=== PATIENT | female | born 1945 | race African-American/Black ===

== ENCOUNTER 2017-07-17 23:00 | Inpatient (IN) | payer MEDICARE, MEDICAID ==
[~2017-07-17] VITALS: Ht 167.6 cm; Wt 81.4 kg
[~2017-07-17 23:00] MED LIST: ACET-3161 PO; AMLO10TA80 PO; ARAV20 PO; CARV12.545 PO; FOLI-43 PO; HYDR-2510 PO; HYDR-4005 PO; LETROZOLE; LOSA100T14 PO; MELO-106 PO; METH2.5T PO; MOTRIN PO; OCD PO; OMEP40CA34 PO; POTA10CA42 PO; PRED5TAB48 PO
[2017-07-18] VITALS: BP 111/73
[2017-07-18 00:49] VITALS: BP 111/73
[2017-07-18] MEDS ORDERED: HYDROCODONE/ACETAMINOPHEN 10/325MG TABLET PO PRN (02:45)
[2017-07-18] MEDS ORDERED: ZOLPIDEM TARTRATE 5MG TABLET PO PRN (02:45)
[2017-07-18] MEDS ORDERED: ONDANSETRON HCL 4MG/2ML VIAL IV PRN ×2 (02:45)
[2017-07-18] MEDS ORDERED: DIPHENHYDRAMINE 50MG/ML VIAL IV PRN (02:45)
[2017-07-18] MEDS ORDERED: ACETAMINOPHEN 325MG TABLET PO PRN (02:45)
[2017-07-18] MEDS ORDERED: DEXT 5%/0.45% NACL 1000ML 1,000 ML IV SCH (02:45)
[2017-07-18] MEDS ORDERED: MAGNESIUM HYDROXIDE 400MG/5ML 30ML UDC PO PRN (02:45)
[2017-07-18] MEDS ORDERED: NALOXONE HCL 0.4 MG/ML 1ML VIAL IV PRN (02:45)
[2017-07-18] MEDS: METOCLOPRAMIDE HCL 10MG TABLET PO SCH ×3 (06:40→22:34)
[2017-07-18] MEDS: HYDROCODONE/ACETAMINOPHEN 10/325MG TABLET PO PRN ×2 (06:47→16:12)
[2017-07-18 07:09] LABS: HEMATOCRIT 26.3 % (36.0-48.0); HEMOGLOBIN 8.6 g/dL (12.0-16.0); MEAN CORPUSCULAR HEMOGLOBIN 31.1 pg (28.0-32.0); MEAN CORPUSCULAR VOLUME 94.5 fL (81.0-99.0); PLATELET 245 x1000/uL (130-400); RED BLOOD CELL COUNT 2.78 mill/uL (4.2-5.4); RED CELL DISTRIBUTION WIDTH 14.7 % (11.6-14.6)
[2017-07-18 07:52] LABS: CARBON DIOXIDE 20 mEq/L (21-32); CHLORIDE 110 mEq/L (98-107); PREALBUMIN 8.9 mg/dL (20.0-40.0)
[2017-07-18 08:00] VITALS: BP 114/68
[2017-07-18] MEDS ORDERED: PANTOPRAZOLE SODIUM 40 MG/VIAL IV SCH (09:00)
[2017-07-18] MEDS: FERROUS SULFATE 325MG TABLET PO SCH ×2 (10:03→16:09)
[2017-07-18] MEDS: DOCUSATE SODIUM 100MG CAPSULE PO SCH ×2 (10:03→16:09)
[2017-07-18] MEDS: RIVAROXABAN 10 MG TABLET PO SCH (16:09)
[2017-07-18 20:00] VITALS: BP 106/61
[2017-07-18] MEDS: PANTOPRAZOLE 40MG DR TABLET PO SCH (22:34)
[2017-07-19] MEDS: HYDROCODONE/ACETAMINOPHEN 10/325MG TABLET PO PRN ×4 (01:42→21:53)
[2017-07-19] MEDS: METOCLOPRAMIDE HCL 10MG TABLET PO SCH ×3 (06:15→21:33)
[2017-07-19 08:06] VITALS: BP 150/82
[2017-07-19] MEDS: FERROUS SULFATE 325MG TABLET PO SCH ×4 (09:20→17:58)
[2017-07-19] MEDS: DOCUSATE SODIUM 100MG CAPSULE PO SCH ×2 (09:20→17:58)
[2017-07-19] MEDS: PANTOPRAZOLE 40MG DR TABLET PO SCH ×2 (09:20→21:33)
[2017-07-19 14:45] VITALS: BP 154/85
[2017-07-19] MEDS: RIVAROXABAN 10 MG TABLET PO SCH (17:58)
[2017-07-19 20:00] VITALS: BP 140/85
[2017-07-19] MEDS ORDERED: ALBUTEROL (0.083%) 2.5MG/3ML NEB HHN PRN (21:30)
[2017-07-19] MEDS: IPRATROPIUM/ALBUTEROL 0.5-3(2.5)MG/3ML NEB HHN SCH (21:30)
[2017-07-20] MEDS: HYDROCODONE/ACETAMINOPHEN 10/325MG TABLET PO PRN (04:04)
[2017-07-20 04:35] LABS: CLARITY URINE CLEAR (CLEAR); COLOR URINE YELLOW (YELLOW); GLUCOSE URINE NEGATIVE (NEGATIVE); KETONES URINE 2+ (NEGATIVE); LEUKOCYTE ESTERASE URINE TRACE (NEGATIVE); NITRITE URINE NEGATIVE (NEGATIVE); OCCULT BLOOD URINE 3+ (NEGATIVE); PH URINE 5.5 (4.5-8.0); PROTEIN URINE 1+ (NEGATIVE); SPECIFIC GRAVITY URINE 1.016 (1.005-1.030); UROBILINOGEN URINE 0.2 E.U./dL (0.2-1.0)
[2017-07-20] MEDS: METOCLOPRAMIDE HCL 10MG TABLET PO SCH ×3 (05:24→21:23)
[2017-07-20 06:52] LABS: BASOPHILS % 0.6 % (0.0-2.0); EOSINOPHILS % 3.4 % (0.0-5.0); HEMATOCRIT. 25.1 % (36.0-48.0); HEMOGLOBIN. 8.4 g/dL (12.0-16.0); LYMPHOCYTES % 14.7 % (20.0-50.0); MEAN CORPUSCULAR HEMOGLOBIN 31.3 pg (28.0-32.0); MEAN CORPUSCULAR VOLUME 93.2 fL (81.0-99.0); MEAN PLATELET VOLUME 7.2 fl (7.4-10.4); MONOCYTES % 12.3 % (2.0-8.0); PLATELET 265 x1000/uL (130-400); RED BLOOD CELL COUNT 2.69 mill/uL (4.2-5.4); RED CELL DISTRIBUTION WIDTH 14.5 % (11.6-14.6)
[2017-07-20 07:04] LABS: FERRITIN 269 ng/mL (10-291)
[2017-07-20] MEDS: IPRATROPIUM/ALBUTEROL 0.5-3(2.5)MG/3ML NEB HHN SCH ×4 (07:28→21:46)
[2017-07-20 07:34] LABS: CHLORIDE 103 mEq/L (98-107)
[2017-07-20 07:48] LABS: CARBON DIOXIDE 21 mEq/L (21-32); HDL CHOLESTEROL 42 mg/dL (40-59); LDL CHOLESTEROL 75 mg/dL (5-100); PHOSPHORUS 2.7 mg/dL (2.5-4.9); PREALBUMIN 8.3 mg/dL (20.0-40.0); TOTAL IRON BINDING CAPACITY 168 ug/dL (250-450)
[2017-07-20 08:00] VITALS: BP 157/85
[2017-07-20 08:02] LABS: VITAMIN B12 SERUM 373 pg/mL (211-911)
[2017-07-20 08:16] LABS: FOLIC ACID (FOLATE) SERUM > 20.00 ng/mL (>5.38)
[2017-07-20] MEDS ORDERED: POTASSIUM CHLORIDE 20MEQ TABLET SR PO SCH (08:45)
[2017-07-20] MEDS ORDERED: MAGNESIUM OXIDE 400MG TABLET PO SCH (09:00)
[2017-07-20] MEDS: PANTOPRAZOLE 40MG DR TABLET PO SCH ×2 (09:40→21:23)
[2017-07-20] MEDS: DOCUSATE SODIUM 100MG CAPSULE PO SCH ×2 (09:40→18:19)
[2017-07-20] MEDS: FERROUS SULFATE 325MG TABLET PO SCH ×2 (09:40→14:12)
[2017-07-20] MEDS: OXYCODONE HCL 5MG TABLET PO PRN ×2 (09:45→23:06)
[2017-07-20] MEDS ORDERED: MAGNESIUM 2 G PREMIX 50 ML IV SCH (17:00)
[2017-07-20] MEDS: RIVAROXABAN 10 MG TABLET PO SCH (18:19)
[2017-07-20] MEDS ORDERED: ACETAMINOPHEN 500MG TABLET PO NR (19:00)
[2017-07-20 20:00] VITALS: BP 147/78
[2017-07-20 21:05] LABS: BASOPHILS % 0.8 % (0.0-2.0); EOSINOPHILS % 1.9 % (0.0-5.0); HEMATOCRIT. 26.3 % (36.0-48.0); HEMOGLOBIN. 8.7 g/dL (12.0-16.0); LYMPHOCYTES % 14.4 % (20.0-50.0); MEAN CORPUSCULAR HEMOGLOBIN 30.8 pg (28.0-32.0); MONOCYTES % 10.5 % (2.0-8.0); NEUTROPHILS % 72.4 % (40.0-76.0); PLATELET 293 x1000/uL (130-400); RED BLOOD CELL COUNT 2.82 mill/uL (4.2-5.4); RED CELL DISTRIBUTION WIDTH 14.5 % (11.6-14.6)
[2017-07-20] MEDS: IRON SUCROSE COMPLEX 100 MG in SODIUM CHLORIDE 0.9% 100 ML IV SCH (21:23)
[2017-07-20 21:48] LABS: CLARITY URINE CLEAR (CLEAR); COLOR URINE YELLOW (YELLOW); GLUCOSE URINE NEGATIVE (NEGATIVE); KETONES URINE 3+ (NEGATIVE); LEUKOCYTE ESTERASE URINE NEGATIVE (NEGATIVE); NITRITE URINE NEGATIVE (NEGATIVE); OCCULT BLOOD URINE 3+ (NEGATIVE); PH URINE 5.5 (4.5-8.0); PROTEIN URINE 1+ (NEGATIVE); SPECIFIC GRAVITY URINE 1.015 (1.005-1.030); UROBILINOGEN URINE 0.2 E.U./dL (0.2-1.0)
[2017-07-20] MEDS: METHYLPREDNISOLONE SOD SUCC 40 MG/ML VIAL IV SCH (23:53)
[2017-07-21] MEDS: METOCLOPRAMIDE HCL 10MG TABLET PO SCH ×3 (05:25→22:22)
[2017-07-21] MEDS: METHYLPREDNISOLONE SOD SUCC 40 MG/ML VIAL IV SCH ×2 (05:25→13:37)
[2017-07-21] MEDS: OXYCODONE HCL 5MG TABLET PO PRN ×6 (05:25→22:22)
[2017-07-21 05:52] LABS: BASOPHILS % 0.7 % (0.0-2.0); EOSINOPHILS % 2.5 % (0.0-5.0); HEMATOCRIT. 24.3 % (36.0-48.0); LYMPHOCYTES % 12.3 % (20.0-50.0); MEAN CORPUSCULAR HEMOGLOBIN 30.8 pg (28.0-32.0); MEAN CORPUSCULAR VOLUME 93.6 fL (81.0-99.0); MONOCYTES % 11.1 % (2.0-8.0); NEUTROPHILS % 73.4 % (40.0-76.0); PLATELET 293 x1000/uL (130-400); RED CELL DISTRIBUTION WIDTH 14.2 % (11.6-14.6)
[2017-07-21 06:09] LABS: CARBON DIOXIDE 21 mEq/L (21-32); CHLORIDE 104 mEq/L (98-107)
[2017-07-21] MEDS: IPRATROPIUM/ALBUTEROL 0.5-3(2.5)MG/3ML NEB HHN SCH ×4 (07:28→20:58)
[2017-07-21] MEDS ORDERED: ACETAMINOPHEN 325MG TABLET PO PRN (07:30)
[2017-07-21 08:00] VITALS: BP 155/87
[2017-07-21] MEDS: CYANOCOBALAMIN 1000MCG/ML VIAL IM SCH (09:41)
[2017-07-21] MEDS: PANTOPRAZOLE 40MG DR TABLET PO SCH ×2 (09:41→21:30)
[2017-07-21] MEDS: DOCUSATE SODIUM 100MG CAPSULE PO SCH ×2 (09:41→17:31)
[2017-07-21] MEDS ORDERED: CEFEPIME 1,000 MG in DEXTROSE 5% WATER 50 ML IV SCH (17:30)
[2017-07-21] MEDS: RIVAROXABAN 10 MG TABLET PO SCH (17:31)
[2017-07-21] MEDS ORDERED: VANCOMYCIN 1500MG in DEXTROSE 5% WATER 250ML IV SCH (18:00)
[2017-07-21 20:00] VITALS: BP 139/90
[2017-07-21] MEDS: IRON SUCROSE COMPLEX 100 MG in SODIUM CHLORIDE 0.9% 100 ML IV SCH (21:29)
[2017-07-21] MEDS: LEVOFLOXACIN 500MG TABLET PO SCH (21:30)
[2017-07-21] MEDS: CEPHALEXIN 500MG CAPSULE PO SCH (22:21)
[2017-07-22] MEDS: METHYLPREDNISOLONE SOD SUCC 40 MG/ML VIAL IV SCH ×3 (00:07→11:59)
[2017-07-22] MEDS: OXYCODONE HCL 5MG TABLET PO PRN ×3 (03:29→13:55)
[2017-07-22] MEDS: CEPHALEXIN 500MG CAPSULE PO SCH ×2 (05:32→13:48)
[2017-07-22] MEDS: METOCLOPRAMIDE HCL 10MG TABLET PO SCH ×2 (05:33→13:48)
[2017-07-22 07:06] LABS: HEMATOCRIT. 25.5 % (36.0-48.0); HEMOGLOBIN. 8.6 g/dL (12.0-16.0); MEAN CORPUSCULAR VOLUME 92.2 fL (81.0-99.0); MEAN PLATELET VOLUME 7.1 fl (7.4-10.4); PLATELET 350 x1000/uL (130-400); RED BLOOD CELL COUNT 2.77 mill/uL (4.2-5.4); RED CELL DISTRIBUTION WIDTH 14.1 % (11.6-14.6)
[2017-07-22 07:26] LABS: CHLORIDE 103 mEq/L (98-107)
[2017-07-22] MEDS: IPRATROPIUM/ALBUTEROL 0.5-3(2.5)MG/3ML NEB HHN SCH ×2 (07:30→11:15)
[2017-07-22 07:37] LABS: CARBON DIOXIDE 23 mEq/L (21-32)
[2017-07-22 08:00] VITALS: BP 151/88
[2017-07-22] MEDS ORDERED: VANCOMYCIN 500 MG PREMIX 100 ML IV SCH (08:00)
[2017-07-22] MEDS: PANTOPRAZOLE 40MG DR TABLET PO SCH (08:53)
[2017-07-22] MEDS: CYANOCOBALAMIN 1000MCG/ML VIAL IM SCH (08:53)
[2017-07-22] MEDS: DOCUSATE SODIUM 100MG CAPSULE PO SCH (08:53)
[2017-07-22] MEDS: LEVOFLOXACIN 500MG TABLET PO SCH (11:59)
[2017-07-22 12:53] LABS: RHEUMATOID FACTOR SCREEN POSITIVE (NEGATIVE)
[2017-07-22 14:41] VITALS: BP 145/94
[2017-07-22 17:12] LABS: ANTI-NUCLEAR ANTIBODIES DIRECT Positive (Negative)
[2017-07-23 15:03] LABS: PLATELET ESTIMATE NORMAL
[2017-07-23 19:06] LABS: 25-HYDROXY VITAMIN D3 3.7 ng/mL (.)
[2017-07-25 17:12] LABS: ACTIN (SMOOTH MUSCLE) ANTIBODY 46 Units (0-19)
[2017-07-26 13:12] LABS: COMPLEMENT C3 162 mg/dL (82-167)
[2017-08-03] MEDS ORDERED: CYANOCOBALAMIN 1000MCG/ML VIAL IM SCH (09:00)
== END 2017-07-22 15:20 | disposition home or self-care (01) | DRG 546 ==
PROVIDERS: ADMIT Physical Medicine & Rehabilitation Spinal Cord Injury Medicine; ATTEND Internal Medicine Rheumatology
DX: M06.862 Other specified rheumatoid arthritis, left knee (principal); E46 Unspecified protein-calorie malnutrition; I11.9 Hypertensive heart disease without heart failure; G72.9 Myopathy, unspecified; E66.01 Morbid (severe) obesity due to excess calories; J98.4 Other disorders of lung; D63.8 Anemia in other chronic diseases classified elsewhere; I77.6 Arteritis, unspecified; I73.9 Peripheral vascular disease, unspecified; K21.9 Gastro-esophageal reflux disease without esophagitis; Z96.652 Presence of left artificial knee joint; D50.9 Iron deficiency anemia, unspecified; E53.8 Deficiency of other specified B group vitamins; E78.5 Hyperlipidemia, unspecified; E87.6 Hypokalemia; R50.82 Postprocedural fever; M05.10 Rheumatoid lung disease with rheumatoid arthritis of unspecified site; J44.9 Chronic obstructive pulmonary disease, unspecified; G89.29 Other chronic pain; M54.5 Low back pain; M51.36 Other intervertebral disc degeneration, lumbar region; Z80.0 Family history of malignant neoplasm of digestive organs; Z82.49 Family history of ischemic heart disease and other diseases of the circulatory system; Z85.3 Personal history of malignant neoplasm of breast; Z90.10 Acquired absence of unspecified breast and nipple; Z79.899 Other long term (current) drug therapy; Z87.01 Personal history of pneumonia (recurrent); Z92.3 Personal history of irradiation; Z87.891 Personal history of nicotine dependence; Z68.37 Body mass index [BMI] 37.0-37.9, adult; Z83.3 Family history of diabetes mellitus
CPT/HCPCS: 36415; 71010; 80048; 80053; 80061; 81001; 82270; 82306; 82607; 82728; 82746; 83036; 83540; 83550; 83735; 84100; 84134; 84443; 84550; 84630; 85025; 85027; 85044; 85379; 85651; 86038; 86160; 86162; 86430; 86880; 87040; 87086; 93970; 94640; 94664; 97110; 97116; 97163; 97166; 97530; 97535; C1893; J0692; J2920; J3370; J3420; J3475; J3490; J7040; J7050; J7060; J7620; J8597

== ENCOUNTER 2017-07-24 20:18 | Emergency (ER) | payer MEDICARE, MEDICAID ==
[~2017-07-24] VITALS: Ht 157.5 cm; Wt 100.0 kg
[2017-07-24 23:15] VITALS: BP 133/74
== END 2017-07-24 23:50 | disposition home or self-care (01) ==
LOC: ER 21:46
DX: Z48.00 Encounter for change or removal of nonsurgical wound dressing (principal); E78.00 Pure hypercholesterolemia, unspecified; I10 Essential (primary) hypertension; Z85.9 Personal history of malignant neoplasm, unspecified; Z96.651 Presence of right artificial knee joint
CPT/HCPCS: 99283; L1830

== ENCOUNTER 2017-08-05 16:03 | Emergency (ER) | payer MEDICARE, MEDICAID ==
[~2017-08-05] VITALS: Ht 165.1 cm; Wt 100.0 kg
[2017-08-05] MEDS ORDERED: CEFTRIAXONE 1 G PREMIX 50 ML IV ONE (17:15)
[2017-08-05] MEDS ORDERED: VANCOMYCIN 500 MG PREMIX 100 ML IV SCH (17:15)
[2017-08-05 17:26] LABS: BASOPHILS % 0.7 % (0.0-2.0); EOSINOPHILS % 1.7 % (0.0-5.0); HEMATOCRIT. 29.9 % (36.0-48.0); HEMOGLOBIN. 9.8 g/dL (12.0-16.0); LYMPHOCYTES % 51.4 % (20.0-50.0); MEAN CORPUSCULAR VOLUME 91.6 fL (81.0-99.0); MEAN PLATELET VOLUME 7.5 fl (7.4-10.4); MONOCYTES % 9.6 % (2.0-8.0); NEUTROPHILS % 36.6 % (40.0-76.0); PLATELET 238 x1000/uL (130-400); RED BLOOD CELL COUNT 3.26 mill/uL (4.2-5.4); RED CELL DISTRIBUTION WIDTH 15.1 % (11.6-14.6)
[2017-08-05 17:32] LABS: INR 1.2; PROTHROMBIN TIME 12.4 sec (9.4-11.6)
[2017-08-05 17:45] LABS: CARBON DIOXIDE 20 mEq/L (21-32); CHLORIDE 105 mEq/L (98-107)
[2017-08-05] MEDS ORDERED: HYDROCODONE/ACETAMINOPHEN 5/325MG TABLET PO ONE (21:45)
[2017-08-06 00:10] VITALS: BP 131/86
== END 2017-08-06 00:09 | disposition home or self-care (01) ==
LOC: ER 16:03 → CMPBEDREQ 21:14 → ER 08-06 00:09
DX: M25.562 Pain in left knee (principal); M06.9 Rheumatoid arthritis, unspecified; I10 Essential (primary) hypertension; E78.00 Pure hypercholesterolemia, unspecified; Z96.652 Presence of left artificial knee joint
CPT/HCPCS: 36415; 71010; 80053; 83605; 85025; 85610; 85651; 86140; 87040; 93005; 96365; 96367; 99285; J0696; J3370

== ENCOUNTER 2017-08-07 12:28 | Inpatient (IN) | payer MEDICARE, MEDICAID ==
[~2017-08-07] VITALS: Ht 167.6 cm; Wt 89.8 kg
[2017-08-07] MEDS ORDERED: SODIUM CHLORIDE 0.9% 1,000 ML IV ONE (14:15)
[2017-08-07 14:46] LABS: BASOPHILS % 0.8 % (0.0-2.0); EOSINOPHILS % 2.5 % (0.0-5.0); HEMATOCRIT. 29.7 % (36.0-48.0); HEMOGLOBIN. 9.8 g/dL (12.0-16.0); LYMPHOCYTES % 49.2 % (20.0-50.0); MEAN CORPUSCULAR HEMOGLOBIN 29.7 pg (28.0-32.0); MEAN CORPUSCULAR VOLUME 89.8 fL (81.0-99.0); MEAN PLATELET VOLUME 7.6 fl (7.4-10.4); MONOCYTES % 11.3 % (2.0-8.0); NEUTROPHILS % 36.2 % (40.0-76.0); PLATELET 200 x1000/uL (130-400)
[2017-08-07 14:55] LABS: CHLORIDE 106 mEq/L (98-107); INR 1.2; PROTHROMBIN TIME 12.9 sec (9.4-11.6)
[2017-08-07 15:00] LABS: CARBON DIOXIDE 21 mEq/L (21-32)
[2017-08-07] MEDS ORDERED: KCL 10MEQ/50ML PREMIX 100 ML IV SCH (15:45)
[2017-08-07] MEDS ORDERED: POTASSIUM CHLORIDE 20MEQ TABLET SR PO ONE (15:45)
[2017-08-07] MEDS ORDERED: SODIUM CHLORIDE 0.9% 1,000 ML IV SCH (15:53)
[2017-08-07] MEDS ORDERED: BACITRACIN 50,000 UNITS/VIAL ONE (21:34)
[2017-08-07] MEDS ORDERED: NORMAL SALINE 0.9% 10 ML SYR ONE (21:34)
[2017-08-07] MEDS ORDERED: BUPIVACAINE/EPINEPHRINE/PF 0.25%/0.0005 30ML ONE (21:37)
[2017-08-07] MEDS ORDERED: MORPHINE SULFATE/PF 1MG/ML 10ML AMP ONE (21:37)
[2017-08-07] MEDS ORDERED: TRANEXAMIC ACID 1,000 MG in SODIUM CHLORIDE 0.9% 100 ML IV NR (23:00)
[2017-08-07] MEDS ORDERED: VANCOMYCIN HCL 500 MG/VIAL ONE (23:02)
[2017-08-07] MEDS ORDERED: LEVOFLOXACIN 500MG PREMIX 100 ML IV ONE (23:02)
[2017-08-07] MEDS ORDERED: HYDROCODONE/ACETAMINOPHEN 5/325MG TABLET PO PRN (23:15)
[2017-08-07] MEDS ORDERED: FENTANYL CITRATE/PF 50MCG/ML 2ML VIAL ONE (23:40)
[2017-08-07] MEDS ORDERED: MIDAZOLAM HCL 2 MG/2 ML VIAL ONE (23:40)
[2017-08-08] MEDS ORDERED: BACITRACIN 50,000 UNITS/VIAL ONE ×2 (00:13→00:51)
[2017-08-08] MEDS ORDERED: GENTAMICIN SULF 40MG/ML 2ML VIAL ONE ×2 (00:13→00:50)
[2017-08-08] MEDS ORDERED: NORMAL SALINE 0.9% 10 ML SYR ONE ×2 (00:13→00:51)
[2017-08-08] MEDS ORDERED: LIDOCAINE HCL 1% 20ML VIAL (Pyxis) INJ ONE (00:30)
[2017-08-08] MEDS ORDERED: PROPOFOL 200MG/20ML VIAL IV ONE (00:30)
[2017-08-08] MEDS ORDERED: GLYCOPYRROLATE 0.2 MG/ML 2ML VIAL ONE (00:31)
[2017-08-08] MEDS ORDERED: ONDANSETRON HCL 4MG/2ML VIAL ONE (00:31)
[2017-08-08] MEDS ORDERED: ROCURONIUM BROMIDE 10MG/ML VIAL 5ML IV ONE (00:31)
[2017-08-08] MEDS ORDERED: NEOSTIGMINE METHYLSULFATE 1MG/ML 10 ML VIAL ONE (00:31)
[2017-08-08] MEDS ORDERED: DEXAMETHASONE 4MG/ML 1ML VIAL ONE (00:31)
[2017-08-08] MEDS ORDERED: SUCCINYLCHOLINE CHLORIDE 200MG/10ML VIAL IV ONE (00:31)
[2017-08-08] MEDS ORDERED: PHENYLEPHRINE HCL 10 MG/ML 1ML (IV VIAL) IV ONE (00:31)
[2017-08-08] MEDS ORDERED: HYDROMORPHONE HCL/PF 2MG/ML (OR) ONE (00:44)
[2017-08-08] MEDS ORDERED: SODIUM CHLORIDE 0.9% 10ML VIAL ONE (00:48)
[2017-08-08] MEDS ORDERED: BACITRACIN ZINC 15GM TUBE TOP ONE (01:51)
[2017-08-08] MEDS ORDERED: LABETALOL HCL 5MG/ML VIAL 20ML IV ONE (02:19)
[2017-08-08] MEDS ORDERED: HYDROMORPHONE HCL/PF 2MG/ML CPJ IV PRN (03:00)
[2017-08-08] MEDS ORDERED: METOCLOPRAMIDE HCL 10MG/2ML VIAL IV PRN (03:00)
[2017-08-08 04:00] VITALS: BP 101/68
[2017-08-08 04:10] LABS: BASOPHILS % 0.5 % (0.0-2.0); EOSINOPHILS % 0.4 % (0.0-5.0); HEMATOCRIT. 29.2 % (36.0-48.0); HEMOGLOBIN. 9.5 g/dL (12.0-16.0); LYMPHOCYTES % 22.6 % (20.0-50.0); MEAN CORPUSCULAR HEMOGLOBIN 29.8 pg (28.0-32.0); MEAN PLATELET VOLUME 7.7 fl (7.4-10.4); MONOCYTES % 2.3 % (2.0-8.0); NEUTROPHILS % 74.2 % (40.0-76.0); PLATELET 190 x1000/uL (130-400); RED BLOOD CELL COUNT 3.18 mill/uL (4.2-5.4); RED CELL DISTRIBUTION WIDTH 15.3 % (11.6-14.6)
[2017-08-08] MEDS ORDERED: DIPHENHYDRAMINE 50MG/ML VIAL IV PRN (04:15)
[2017-08-08] MEDS ORDERED: NALOXONE HCL 0.4 MG/ML 1ML VIAL IV PRN (04:15)
[2017-08-08] MEDS ORDERED: ONDANSETRON HCL 4MG/2ML VIAL IV PRN (04:15)
[2017-08-08] MEDS ORDERED: HYDROMORPHONE PCA 50 ML IV PRN (04:15)
[2017-08-08 04:47] LABS: CARBON DIOXIDE 18 mEq/L (21-32); CHLORIDE 112 mEq/L (98-107)
[2017-08-08 05:00] VITALS: BP 101/68
[2017-08-08] MEDS ORDERED: HYDROCODONE/ACETAMINOPHEN 5/325MG TABLET PO PRN ×2 (05:25→05:26)
[2017-08-08] MEDS ORDERED: HYDROCODONE/ACETAMINOPHEN 5/325MG TABLET PO SCH (05:25)
[2017-08-08] MEDS ORDERED: MAGNESIUM HYDROXIDE 400MG/5ML 30ML UDC PO PRN (05:25)
[2017-08-08] MEDS ORDERED: DEXT 5% WATER + KCL 20MEQ/L 1,000 ML IV SCH (07:00)
[2017-08-08] MEDS ORDERED: LEVOFLOXACIN 500MG PREMIX 100 ML IV SCH (07:00)
[2017-08-08] MEDS: VANCOMYCIN 1500MG in DEXTROSE 5% WATER 250ML IV SCH (07:03)
[2017-08-08 07:23] LABS: HEMOGLOBIN 10.1 g/dL (12.0-16.0); MEAN CORPUSCULAR HEMOGLOBIN 29.4 pg (28.0-32.0); MEAN CORPUSCULAR VOLUME 93.4 fL (81.0-99.0); PLATELET 186 x1000/uL (130-400); RED BLOOD CELL COUNT 3.43 mill/uL (4.2-5.4); RED CELL DISTRIBUTION WIDTH 15.5 % (11.6-14.6)
[2017-08-08 08:00] VITALS: BP 133/96
[2017-08-08] MEDS ORDERED: CALCIUM CARBONATE 1250MG TABLET (500MG ELEMENTAL CALCIUM) PO SCH (09:00)
[2017-08-08 09:52] LABS: PREALBUMIN 4.8 mg/dL (20.0-40.0); T4 FREE 1.17 ng/dL (0.76-1.46)
[2017-08-08] MEDS: CHOLECALCIFEROL (D3) 1000 UNIT TABLET PO SCH (09:52)
[2017-08-08] MEDS: POTASSIUM CHLORIDE 20MEQ TABLET SR PO SCH (09:52)
[2017-08-08] MEDS: CALCIUM CARBONATE 500MG TABLET CHEW PO SCH ×3 (09:52→18:05)
[2017-08-08] MEDS: PREDNISONE 5MG TABLET PO SCH (09:52)
[2017-08-08] MEDS: DOCUSATE SODIUM 100MG CAPSULE PO SCH ×2 (09:52→17:51)
[2017-08-08] MEDS: PANTOPRAZOLE 40MG DR TABLET PO SCH ×2 (09:53→17:51)
[2017-08-08] MEDS: AMLODIPINE 10MG TABLET PO SCH (09:53)
[2017-08-08] MEDS: FOLIC ACID 1MG TABLET PO SCH (09:53)
[2017-08-08] MEDS: CARVEDILOL 12.5MG TABLET PO SCH ×2 (09:53→21:00)
[2017-08-08] MEDS: FERROUS SULFATE 325MG TABLET PO SCH ×3 (09:54→18:05)
[2017-08-08] MEDS: HYDROCHLOROTHIAZIDE 25MG TABLET PO SCH (09:55)
[2017-08-08] MEDS: PAROXETINE HCL 20MG TABLET PO SCH (09:55)
[2017-08-08] MEDS: MELOXICAM 7.5MG TABLET PO SCH (09:55)
[2017-08-08] MEDS ORDERED: IPRATROPIUM/ALBUTEROL 0.5-3(2.5)MG/3ML NEB HHN PRN (11:00)
[2017-08-08 12:00] VITALS: BP 107/74
[2017-08-08] MEDS: IPRATROPIUM/ALBUTEROL 0.5-3(2.5)MG/3ML NEB HHN SCH ×3 (13:16→20:00)
[2017-08-08 16:00] VITALS: BP 97/52
[2017-08-08] MEDS: CEFEPIME 1,000 MG in DEXTROSE 5% WATER 50 ML IV SCH (17:49)
[2017-08-08] MEDS: ACETAMINOPHEN 325MG TABLET PO PRN (17:50)
[2017-08-08 20:00] VITALS: BP 96/56
[2017-08-08] MEDS: DEXT 5% WATER + KCL 20MEQ/L 1,000 ML IV SCH (22:00)
[2017-08-08] MEDS: LOSARTAN POTASSIUM 100 MG TABLET PO SCH (22:12)
[2017-08-09] VITALS: BP 106/59
[2017-08-09 04:00] VITALS: BP 120/66
[2017-08-09] MEDS: CEFEPIME 1,000 MG in DEXTROSE 5% WATER 50 ML IV SCH ×2 (05:41→18:27)
[2017-08-09] MEDS: VANCOMYCIN 1500MG in DEXTROSE 5% WATER 250ML IV SCH (06:18)
[2017-08-09] MEDS: DEXT 5% WATER + KCL 20MEQ/L 1,000 ML IV SCH ×3 (06:18→16:50)
[2017-08-09] MEDS: PANTOPRAZOLE 40MG DR TABLET PO SCH ×2 (07:32→18:27)
[2017-08-09] MEDS: TRAMADOL 50MG TABLET PO PRN ×2 (07:32→18:28)
[2017-08-09 07:35] LABS: BASOPHILS % 0.2 % (0.0-2.0); HEMOGLOBIN. 8.1 g/dL (12.0-16.0); MEAN CORPUSCULAR HEMOGLOBIN 29.9 pg (28.0-32.0); MEAN CORPUSCULAR VOLUME 89.1 fL (81.0-99.0); MEAN PLATELET VOLUME 8.3 fl (7.4-10.4); MONOCYTES % 9.6 % (2.0-8.0); NEUTROPHILS % 63.2 % (40.0-76.0); PLATELET 194 x1000/uL (130-400); RED BLOOD CELL COUNT 2.69 mill/uL (4.2-5.4); RED CELL DISTRIBUTION WIDTH 15.4 % (11.6-14.6)
[2017-08-09 08:00] VITALS: BP 113/66
[2017-08-09 08:31] LABS: CARBON DIOXIDE 21 mEq/L (21-32); CHLORIDE 107 mEq/L (98-107)
[2017-08-09] MEDS: PAROXETINE HCL 20MG TABLET PO SCH (08:43)
[2017-08-09] MEDS: FOLIC ACID 1MG TABLET PO SCH (08:43)
[2017-08-09] MEDS: DOCUSATE SODIUM 100MG CAPSULE PO SCH ×2 (08:43→18:27)
[2017-08-09] MEDS: PREDNISONE 5MG TABLET PO SCH (08:43)
[2017-08-09] MEDS: POTASSIUM CHLORIDE 20MEQ TABLET SR PO SCH (08:43)
[2017-08-09] MEDS: MELOXICAM 7.5MG TABLET PO SCH (08:43)
[2017-08-09] MEDS: CALCIUM CARBONATE 500MG TABLET CHEW PO SCH ×3 (08:43→18:27)
[2017-08-09] MEDS: FERROUS SULFATE 325MG TABLET PO SCH ×3 (08:43→18:28)
[2017-08-09] MEDS: CARVEDILOL 12.5MG TABLET PO SCH ×2 (08:44→23:47)
[2017-08-09] MEDS: HYDROCHLOROTHIAZIDE 25MG TABLET PO SCH (08:44)
[2017-08-09] MEDS: CHOLECALCIFEROL (D3) 1000 UNIT TABLET PO SCH (08:44)
[2017-08-09] MEDS: AMLODIPINE 10MG TABLET PO SCH (08:44)
[2017-08-09] MEDS: IPRATROPIUM/ALBUTEROL 0.5-3(2.5)MG/3ML NEB HHN SCH ×4 (09:30→21:43)
[2017-08-09] MEDS: ONDANSETRON HCL 4MG/2ML VIAL IV PRN (11:16)
[2017-08-09 12:00] VITALS: BP 102/55
[2017-08-09 16:00] VITALS: BP 106/72
[2017-08-09] MEDS ORDERED: METHYLPREDNISOLONE SOD SUCC 125 MG/2 ML VIAL IV SCH (18:30)
[2017-08-09 20:35] VITALS: BP 122/87
[2017-08-09] MEDS: LOSARTAN POTASSIUM 100 MG TABLET PO SCH (23:46)
[2017-08-09] MEDS: METHYLPREDNISOLONE SOD SUCC 40 MG/ML VIAL IV SCH (23:47)
[2017-08-10] VITALS: BP 158/97
[2017-08-10] MEDS: ONDANSETRON HCL 4MG/2ML VIAL IV PRN
[2017-08-10] MEDS: DEXT 5% WATER + KCL 20MEQ/L 1,000 ML IV SCH ×2 (02:39→09:43)
[2017-08-10 04:00] VITALS: BP 159/96
[2017-08-10 06:32] LABS: BASOPHILS % 0.2 % (0.0-2.0); HEMATOCRIT. 29.9 % (36.0-48.0); HEMOGLOBIN. 9.9 g/dL (12.0-16.0); LYMPHOCYTES % 17.3 % (20.0-50.0); MEAN CORPUSCULAR HEMOGLOBIN 29.2 pg (28.0-32.0); MEAN CORPUSCULAR VOLUME 87.9 fL (81.0-99.0); MEAN PLATELET VOLUME 8.3 fl (7.4-10.4); MONOCYTES % 2.8 % (2.0-8.0); NEUTROPHILS % 79.7 % (40.0-76.0); PLATELET 212 x1000/uL (130-400); RED CELL DISTRIBUTION WIDTH 14.8 % (11.6-14.6)
[2017-08-10] MEDS: METHYLPREDNISOLONE SOD SUCC 40 MG/ML VIAL IV SCH ×2 (06:49→12:30)
[2017-08-10] MEDS: CEFEPIME 1,000 MG in DEXTROSE 5% WATER 50 ML IV SCH (06:49)
[2017-08-10 08:00] VITALS: BP 158/95
[2017-08-10] MEDS: CALCIUM CARBONATE 500MG TABLET CHEW PO SCH ×3 (09:04→18:22)
[2017-08-10] MEDS: CHOLECALCIFEROL (D3) 1000 UNIT TABLET PO SCH (09:04)
[2017-08-10] MEDS: HYDROCHLOROTHIAZIDE 25MG TABLET PO SCH (09:04)
[2017-08-10] MEDS: FOLIC ACID 1MG TABLET PO SCH (09:05)
[2017-08-10] MEDS: POTASSIUM CHLORIDE 20MEQ TABLET SR PO SCH (09:05)
[2017-08-10] MEDS: FERROUS SULFATE 325MG TABLET PO SCH ×3 (09:05→18:22)
[2017-08-10] MEDS: DOCUSATE SODIUM 100MG CAPSULE PO SCH ×2 (09:05→18:22)
[2017-08-10] MEDS: PANTOPRAZOLE 40MG DR TABLET PO SCH ×2 (09:05→18:22)
[2017-08-10] MEDS: PAROXETINE HCL 20MG TABLET PO SCH (09:05)
[2017-08-10] MEDS: MELOXICAM 7.5MG TABLET PO SCH (09:05)
[2017-08-10] MEDS: AMLODIPINE 10MG TABLET PO SCH (09:06)
[2017-08-10] MEDS: CARVEDILOL 12.5MG TABLET PO SCH ×2 (09:06→22:01)
[2017-08-10 12:00] VITALS: BP 156/99
[2017-08-10] MEDS ORDERED: HYDRALAZINE HCL 25MG TABLET PO SCH (13:00)
[2017-08-10] MEDS: SODIUM BICARBONATE 650 MG TABLET PO SCH ×2 (13:51→18:22)
[2017-08-10] MEDS ORDERED: CEFTRIAXONE IV SCH (15:00)
[2017-08-10] MEDS ORDERED: SODIUM CHLORIDE 0.9% IV SCH (15:00)
[2017-08-10 16:00] VITALS: BP 152/86
[2017-08-10] MEDS ORDERED: CEFTRIAXONE 2 G PREMIX 50 ML IV SCH (16:00)
[2017-08-10 20:00] VITALS: BP 145/97
[2017-08-10] MEDS: IPRATROPIUM/ALBUTEROL 0.5-3(2.5)MG/3ML NEB HHN SCH ×2 (20:46→21:25)
[2017-08-10] MEDS ORDERED: VANCOMYCIN 750 MG PREMIX 150 ML IV NR (21:00)
[2017-08-10] MEDS ORDERED: LEVOFLOXACIN 500MG TABLET PO NR (21:45)
[2017-08-10] MEDS: LOSARTAN POTASSIUM 100 MG TABLET PO SCH (22:00)
[2017-08-10] MEDS: HYDRALAZINE HCL 50MG TABLET PO SCH (22:00)
[2017-08-11] VITALS: BP 131/86
[2017-08-11] MEDS: METHYLPREDNISOLONE SOD SUCC 40 MG/ML VIAL IV SCH ×4 (00:30→18:06)
[2017-08-11 04:00] VITALS: BP 154/99
[2017-08-11 05:49] LABS: BASOPHILS % 0.2 % (0.0-2.0); HEMOGLOBIN. 10.6 g/dL (12.0-16.0); LYMPHOCYTES % 17.6 % (20.0-50.0); MEAN CORPUSCULAR HEMOGLOBIN 29.1 pg (28.0-32.0); MEAN CORPUSCULAR VOLUME 85.3 fL (81.0-99.0); MEAN PLATELET VOLUME 8.5 fl (7.4-10.4); MONOCYTES % 11.2 % (2.0-8.0); PLATELET 271 x1000/uL (130-400); RED BLOOD CELL COUNT 3.64 mill/uL (4.2-5.4); RED CELL DISTRIBUTION WIDTH 14.6 % (11.6-14.6)
[2017-08-11] MEDS: PANTOPRAZOLE 40MG DR TABLET PO SCH ×2 (06:06→17:18)
[2017-08-11 06:41] LABS: CHLORIDE 88 mEq/L (98-107)
[2017-08-11 06:47] LABS: CARBON DIOXIDE 22 mEq/L (21-32)
[2017-08-11 06:55] LABS: PREALBUMIN 17.1 mg/dL (20.0-40.0)
[2017-08-11] MEDS: IPRATROPIUM/ALBUTEROL 0.5-3(2.5)MG/3ML NEB HHN SCH ×5 (07:34→20:17)
[2017-08-11 08:00] VITALS: BP 141/100
[2017-08-11] MEDS ORDERED: METHOTREXATE SODIUM 2 . 5MG TABLET PO SCH ×3 (09:00→17:00)
[2017-08-11] MEDS: CALCIUM CARBONATE 500MG TABLET CHEW PO SCH ×3 (09:04→17:18)
[2017-08-11] MEDS: SODIUM BICARBONATE 650 MG TABLET PO SCH ×2 (09:04→17:19)
[2017-08-11] MEDS: POTASSIUM CHLORIDE 20MEQ TABLET SR PO SCH (09:04)
[2017-08-11] MEDS: FERROUS SULFATE 325MG TABLET PO SCH ×3 (09:04→17:18)
[2017-08-11] MEDS: FOLIC ACID 1MG TABLET PO SCH (09:04)
[2017-08-11] MEDS: CHOLECALCIFEROL (D3) 1000 UNIT TABLET PO SCH (09:04)
[2017-08-11] MEDS: HYDROCHLOROTHIAZIDE 25MG TABLET PO SCH (09:05)
[2017-08-11] MEDS: MELOXICAM 7.5MG TABLET PO SCH (09:05)
[2017-08-11] MEDS: CARVEDILOL 12.5MG TABLET PO SCH (09:05)
[2017-08-11] MEDS: DOCUSATE SODIUM 100MG CAPSULE PO SCH ×2 (09:05→17:19)
[2017-08-11] MEDS: HYDRALAZINE HCL 50MG TABLET PO SCH ×2 (09:05→21:30)
[2017-08-11] MEDS: AMLODIPINE 10MG TABLET PO SCH (09:06)
[2017-08-11] MEDS: DEXT 5%/0.45% NACL KCL 10MEQ/L 1,000 ML IV SCH ×3 (09:07→17:16)
[2017-08-11] MEDS ORDERED: POTASSIUM CHLORIDE 20MEQ TABLET SR PO NR (10:30)
[2017-08-11 12:00] VITALS: BP 136/91
[2017-08-11] MEDS ORDERED: SODIUM BICARBONATE 4% (2.4MEQ) 5ML VIAL IV ONE (14:26)
[2017-08-11] MEDS ORDERED: LIDOCAINE HCL 1% 20ML VIAL (Pyxis) INJ ONE (14:26)
[2017-08-11 16:00] VITALS: BP 136/91
[2017-08-11] MEDS: VANCOMYCIN 750 MG PREMIX 150 ML IV SCH (18:06)
[2017-08-11 20:00] VITALS: BP 136/94
[2017-08-11] MEDS ORDERED: SODIUM CHLORIDE 3% 500ML IV SOLN IV ONE (21:00)
[2017-08-11] MEDS: LOSARTAN POTASSIUM 100 MG TABLET PO SCH (21:29)
[2017-08-11] MEDS: CARVEDILOL 25MG TABLET PO SCH (21:30)
[2017-08-11] MEDS ORDERED: SODIUM CHLORIDE 3% 500 ML IV NR (22:00)
[2017-08-11] MEDS: ONDANSETRON HCL 4MG/2ML VIAL IV PRN (22:01)
[2017-08-12] VITALS: BP 128/80
[2017-08-12] MEDS: METHYLPREDNISOLONE SOD SUCC 40 MG/ML VIAL IV SCH ×4 (02:25→19:27)
[2017-08-12 04:00] VITALS: BP 146/99
[2017-08-12] MEDS: PANTOPRAZOLE 40MG DR TABLET PO SCH ×2 (06:49→18:03)
[2017-08-12 07:05] LABS: HEMATOCRIT. 37.8 % (36.0-48.0); HEMOGLOBIN. 12.8 g/dL (12.0-16.0); MEAN CORPUSCULAR HEMOGLOBIN 29.3 pg (28.0-32.0); MEAN CORPUSCULAR VOLUME 86.5 fL (81.0-99.0); MEAN PLATELET VOLUME 8.8 fl (7.4-10.4); PLATELET 300 x1000/uL (130-400); RED BLOOD CELL COUNT 4.37 mill/uL (4.2-5.4); RED CELL DISTRIBUTION WIDTH 14.6 % (11.6-14.6)
[2017-08-12] MEDS: IPRATROPIUM/ALBUTEROL 0.5-3(2.5)MG/3ML NEB HHN SCH ×4 (07:45→20:35)
[2017-08-12 08:00] VITALS: BP 133/93
[2017-08-12] MEDS ORDERED: MAGNESIUM 4 G PREMIX 100 ML IV SCH (09:00)
[2017-08-12] MEDS: VANCOMYCIN 750 MG PREMIX 150 ML IV SCH (09:19)
[2017-08-12] MEDS: FERROUS SULFATE 325MG TABLET PO SCH ×3 (09:24→18:03)
[2017-08-12] MEDS: HYDRALAZINE HCL 50MG TABLET PO SCH ×2 (09:25→21:27)
[2017-08-12] MEDS: CARVEDILOL 25MG TABLET PO SCH ×2 (09:25→21:27)
[2017-08-12] MEDS: DOCUSATE SODIUM 100MG CAPSULE PO SCH ×2 (09:25→18:03)
[2017-08-12] MEDS: HYDROCHLOROTHIAZIDE 25MG TABLET PO SCH (09:26)
[2017-08-12] MEDS: CALCIUM CARBONATE 500MG TABLET CHEW PO SCH ×3 (09:26→18:03)
[2017-08-12] MEDS: FOLIC ACID 1MG TABLET PO SCH (09:26)
[2017-08-12] MEDS: POTASSIUM CHLORIDE 20MEQ TABLET SR PO SCH ×2 (09:26→18:03)
[2017-08-12] MEDS: AMLODIPINE 10MG TABLET PO SCH (09:26)
[2017-08-12] MEDS: CHOLECALCIFEROL (D3) 1000 UNIT TABLET PO SCH (09:27)
[2017-08-12] MEDS: MELOXICAM 7.5MG TABLET PO SCH (09:31)
[2017-08-12] MEDS: SODIUM BICARBONATE 650 MG TABLET PO SCH ×2 (09:31→18:03)
[2017-08-12] MEDS: ONDANSETRON HCL 4MG/2ML VIAL IV PRN ×3 (09:48→21:26)
[2017-08-12 12:00] VITALS: BP 117/75
[2017-08-12 16:00] VITALS: BP 139/92
[2017-08-12] MEDS: POTASSIUM CHLORIDE INJ 10 MEQ in DEXT 5%/0.9% NACL 1,000 ML IV SCH (19:31)
[2017-08-12 20:00] VITALS: BP 125/76
[2017-08-12] MEDS ORDERED: MAGNESIUM 4 G PREMIX 100 ML IV NR (20:00)
[2017-08-12] MEDS ORDERED: SODIUM CHLORIDE 3% 500ML IV SOLN IV NR (21:00)
[2017-08-12] MEDS ORDERED: SODIUM CHLORIDE 3% 500 ML IV NR (21:00)
[2017-08-12] MEDS: LOSARTAN POTASSIUM 100 MG TABLET PO SCH (21:26)
[2017-08-12 22:17] LABS: PLATELET ESTIMATE NORMAL
[2017-08-13] VITALS: BP 104/68
[2017-08-13] MEDS: METHYLPREDNISOLONE SOD SUCC 40 MG/ML VIAL IV SCH ×4 (00:04→18:28)
[2017-08-13 04:00] VITALS: BP 129/79
[2017-08-13] MEDS: PANTOPRAZOLE 40MG DR TABLET PO SCH ×2 (06:48→18:28)
[2017-08-13] MEDS: POTASSIUM CHLORIDE INJ 10 MEQ in DEXT 5%/0.9% NACL 1,000 ML IV SCH ×2 (06:48→18:25)
[2017-08-13 07:43] LABS: LYMPHOCYTES % 12.4 % (20.0-50.0); MEAN PLATELET VOLUME 8.6 fl (7.4-10.4); MONOCYTES % 6.7 % (2.0-8.0); NEUTROPHILS % 80.9 % (40.0-76.0); PLATELET 263 x1000/uL (130-400); RED BLOOD CELL COUNT 3.44 mill/uL (4.2-5.4); RED CELL DISTRIBUTION WIDTH 14.7 % (11.6-14.6)
[2017-08-13 08:00] VITALS: BP 145/86
[2017-08-13] MEDS: IPRATROPIUM/ALBUTEROL 0.5-3(2.5)MG/3ML NEB HHN SCH ×4 (08:24→21:20)
[2017-08-13] MEDS: FERROUS SULFATE 325MG TABLET PO SCH ×3 (09:02→18:28)
[2017-08-13] MEDS: CALCIUM CARBONATE 500MG TABLET CHEW PO SCH ×3 (09:02→18:28)
[2017-08-13] MEDS: FOLIC ACID 1MG TABLET PO SCH (09:02)
[2017-08-13] MEDS: SODIUM BICARBONATE 650 MG TABLET PO SCH ×2 (09:03→18:28)
[2017-08-13] MEDS: DOCUSATE SODIUM 100MG CAPSULE PO SCH ×2 (09:03→18:28)
[2017-08-13] MEDS: HYDROCHLOROTHIAZIDE 25MG TABLET PO SCH (09:03)
[2017-08-13] MEDS: POTASSIUM CHLORIDE 20MEQ TABLET SR PO SCH ×2 (09:03→18:28)
[2017-08-13] MEDS: MELOXICAM 7.5MG TABLET PO SCH (09:04)
[2017-08-13] MEDS: AMLODIPINE 10MG TABLET PO SCH (09:05)
[2017-08-13] MEDS: HYDRALAZINE HCL 50MG TABLET PO SCH ×2 (09:06→22:24)
[2017-08-13] MEDS: CARVEDILOL 25MG TABLET PO SCH ×2 (09:06→22:27)
[2017-08-13] MEDS: CHOLECALCIFEROL (D3) 1000 UNIT TABLET PO SCH (09:08)
[2017-08-13 09:11] LABS: IMMUNOGLOBULIN A 296 mg/dL (64-422); IMMUNOGLOBULIN G 1035 mg/dL (700-1600); IMMUNOGLOBULIN M 79 mg/dL (26-217)
[2017-08-13] MEDS: ONDANSETRON HCL 4MG/2ML VIAL IV PRN (09:16)
[2017-08-13] MEDS: VANCOMYCIN 750 MG PREMIX 150 ML IV SCH (09:19)
[2017-08-13 12:00] VITALS: BP 121/69
[2017-08-13] MEDS: KCL 20MEQ/100ML PREMIX 100 ML IV SCH ×3 (14:17→22:37)
[2017-08-13] MEDS: CEFTRIAXONE 2 G in DEXTROSE 5% WATER 50 ML IV SCH (15:46)
[2017-08-13 16:00] VITALS: BP 123/70
[2017-08-13 20:00] VITALS: BP 105/70
[2017-08-13] MEDS: LOSARTAN POTASSIUM 100 MG TABLET PO SCH (22:26)
[2017-08-13] MEDS: ACETAMINOPHEN 325MG TABLET PO PRN (22:26)
[2017-08-14] VITALS: BP 121/70
[2017-08-14] MEDS: ACETAMINOPHEN 325MG TABLET PO PRN (01:14)
[2017-08-14] MEDS: IPRATROPIUM/ALBUTEROL 0.5-3(2.5)MG/3ML NEB HHN SCH ×6 (01:15→21:57)
[2017-08-14] MEDS: METHYLPREDNISOLONE SOD SUCC 40 MG/ML VIAL IV SCH ×4 (01:18→17:46)
[2017-08-14 04:00] VITALS: BP 132/74
[2017-08-14 06:07] LABS: HEMATOCRIT. 30.8 % (36.0-48.0); HEMOGLOBIN. 10.2 g/dL (12.0-16.0); MEAN CORPUSCULAR HEMOGLOBIN 29.3 pg (28.0-32.0); MEAN CORPUSCULAR VOLUME 88.7 fL (81.0-99.0); MEAN PLATELET VOLUME 8.8 fl (7.4-10.4); PLATELET 253 x1000/uL (130-400); RED BLOOD CELL COUNT 3.48 mill/uL (4.2-5.4); RED CELL DISTRIBUTION WIDTH 14.7 % (11.6-14.6)
[2017-08-14] MEDS: PANTOPRAZOLE 40MG DR TABLET PO SCH ×2 (07:30→17:44)
[2017-08-14 08:00] VITALS: BP 114/75
[2017-08-14] MEDS: SODIUM BICARBONATE 650 MG TABLET PO SCH ×2 (11:21→17:44)
[2017-08-14] MEDS: CHOLECALCIFEROL (D3) 1000 UNIT TABLET PO SCH (11:21)
[2017-08-14] MEDS: CALCIUM CARBONATE 500MG TABLET CHEW PO SCH ×3 (11:21→17:43)
[2017-08-14] MEDS: POTASSIUM CHLORIDE 20MEQ TABLET SR PO SCH ×2 (11:22→17:44)
[2017-08-14] MEDS: MELOXICAM 7.5MG TABLET PO SCH (11:23)
[2017-08-14] MEDS: DOCUSATE SODIUM 100MG CAPSULE PO SCH ×2 (11:23→17:43)
[2017-08-14] MEDS: FOLIC ACID 1MG TABLET PO SCH (11:24)
[2017-08-14] MEDS: CARVEDILOL 25MG TABLET PO SCH ×2 (11:24→21:00)
[2017-08-14] MEDS: HYDROCHLOROTHIAZIDE 25MG TABLET PO SCH (11:24)
[2017-08-14] MEDS: FERROUS SULFATE 325MG TABLET PO SCH ×3 (11:24→17:44)
[2017-08-14] MEDS: AMLODIPINE 10MG TABLET PO SCH (11:25)
[2017-08-14] MEDS: VANCOMYCIN 750 MG PREMIX 150 ML IV SCH (11:25)
[2017-08-14] MEDS: HYDRALAZINE HCL 50MG TABLET PO SCH ×2 (11:25→21:00)
[2017-08-14 12:00] VITALS: BP 124/70
[2017-08-14 16:00] VITALS: BP 91/49
[2017-08-14] MEDS: CEFTRIAXONE 2 G in DEXTROSE 5% WATER 50 ML IV SCH (16:09)
[2017-08-14 16:29] LABS: PLATELET ESTIMATE NORMAL
[2017-08-14] MEDS: DEXT 5%/0.45% NACL 1000ML 1,000 ML IV SCH ×2 (18:01→22:00)
[2017-08-14 20:00] VITALS: BP 98/58
[2017-08-14] MEDS: LOSARTAN POTASSIUM 100 MG TABLET PO SCH (21:00)
[2017-08-15] VITALS: BP 107/65
[2017-08-15] MEDS: METHYLPREDNISOLONE SOD SUCC 40 MG/ML VIAL IV SCH ×3 (01:03→14:44)
[2017-08-15] MEDS: ACETAMINOPHEN 325MG TABLET PO PRN ×2 (01:19→16:56)
[2017-08-15 04:00] VITALS: BP 111/69
[2017-08-15] MEDS: PANTOPRAZOLE 40MG DR TABLET PO SCH ×2 (06:43→17:36)
[2017-08-15 08:00] VITALS: BP 121/75
[2017-08-15 10:02] LABS: HEMATOCRIT. 25.3 % (36.0-48.0); MEAN CORPUSCULAR HEMOGLOBIN 29.4 pg (28.0-32.0); MEAN CORPUSCULAR VOLUME 87.8 fL (81.0-99.0); MEAN PLATELET VOLUME 8.9 fl (7.4-10.4); PLATELET 228 x1000/uL (130-400); RED BLOOD CELL COUNT 2.88 mill/uL (4.2-5.4); RED CELL DISTRIBUTION WIDTH 14.2 % (11.6-14.6)
[2017-08-15] MEDS: IPRATROPIUM/ALBUTEROL 0.5-3(2.5)MG/3ML NEB HHN SCH ×4 (10:03→21:12)
[2017-08-15] MEDS: VANCOMYCIN 750 MG PREMIX 150 ML IV SCH (10:06)
[2017-08-15] MEDS: FERROUS SULFATE 325MG TABLET PO SCH ×3 (10:06→19:02)
[2017-08-15] MEDS: HYDRALAZINE HCL 50MG TABLET PO SCH ×2 (10:17→21:31)
[2017-08-15] MEDS: CARVEDILOL 25MG TABLET PO SCH ×2 (10:18→21:30)
[2017-08-15] MEDS: DOCUSATE SODIUM 100MG CAPSULE PO SCH ×2 (10:18→17:36)
[2017-08-15] MEDS: CALCIUM CARBONATE 500MG TABLET CHEW PO SCH ×3 (10:20→17:36)
[2017-08-15] MEDS: CHOLECALCIFEROL (D3) 1000 UNIT TABLET PO SCH (10:20)
[2017-08-15 10:21] LABS: HEMOGLOBIN. 8.5 g/dL (12.0-16.0)
[2017-08-15] MEDS: FOLIC ACID 1MG TABLET PO SCH (10:21)
[2017-08-15] MEDS: HYDROCHLOROTHIAZIDE 25MG TABLET PO SCH (10:21)
[2017-08-15] MEDS: AMLODIPINE 10MG TABLET PO SCH (10:21)
[2017-08-15] MEDS: MELOXICAM 7.5MG TABLET PO SCH (10:38)
[2017-08-15] MEDS: SODIUM BICARBONATE 650 MG TABLET PO SCH ×2 (10:38→17:36)
[2017-08-15] MEDS: DEXT 5%/0.45% NACL 1000ML 1,000 ML IV SCH (10:52)
[2017-08-15] MEDS: POTASSIUM CHLORIDE 20MEQ TABLET SR PO SCH ×2 (11:00→17:37)
[2017-08-15 12:00] VITALS: BP 130/79
[2017-08-15 14:25] LABS: PLATELET ESTIMATE NORMAL
[2017-08-15 16:00] VITALS: BP 127/78
[2017-08-15] MEDS: CEFTRIAXONE 2 G in DEXTROSE 5% WATER 50 ML IV SCH (17:36)
[2017-08-15 20:00] VITALS: BP 109/60
[2017-08-15] MEDS: LOSARTAN POTASSIUM 100 MG TABLET PO SCH (21:30)
[2017-08-16] VITALS (7 sets, daily range): BP systolic 90–134; BP diastolic 44–81
[2017-08-16] MEDS: METHYLPREDNISOLONE SOD SUCC 40 MG/ML VIAL IV SCH ×4 (01:36→18:20)
[2017-08-16] MEDS: DEXT 5%/0.9% NACL 1,000 ML IV SCH ×2 (01:37→14:42)
[2017-08-16] MEDS: ACETAMINOPHEN 325MG TABLET PO PRN ×2 (01:41→17:26)
[2017-08-16 06:52] LABS: HEMATOCRIT. 27.4 % (36.0-48.0); HEMOGLOBIN. 9.1 g/dL (12.0-16.0); MEAN CORPUSCULAR HEMOGLOBIN 29.6 pg (28.0-32.0); MEAN CORPUSCULAR VOLUME 88.5 fL (81.0-99.0); MEAN PLATELET VOLUME 8.5 fl (7.4-10.4); PLATELET 245 x1000/uL (130-400); RED BLOOD CELL COUNT 3.09 mill/uL (4.2-5.4); RED CELL DISTRIBUTION WIDTH 14.3 % (11.6-14.6)
[2017-08-16 07:26] LABS: CHLORIDE 94 mEq/L (98-107)
[2017-08-16] MEDS: PANTOPRAZOLE 40MG DR TABLET PO SCH ×2 (07:35→17:21)
[2017-08-16] MEDS: FERROUS SULFATE 325MG TABLET PO SCH ×3 (07:35→17:19)
[2017-08-16 07:41] LABS: CARBON DIOXIDE 23 mEq/L (21-32); PREALBUMIN 27.2 mg/dL (20.0-40.0)
[2017-08-16] MEDS: VANCOMYCIN 750 MG PREMIX 150 ML IV SCH (09:13)
[2017-08-16] MEDS: HYDRALAZINE HCL 50MG TABLET PO SCH ×2 (09:13→21:00)
[2017-08-16] MEDS: CARVEDILOL 25MG TABLET PO SCH ×2 (09:14→21:00)
[2017-08-16] MEDS: FOLIC ACID 1MG TABLET PO SCH (09:14)
[2017-08-16] MEDS: DOCUSATE SODIUM 100MG CAPSULE PO SCH ×2 (09:14→17:19)
[2017-08-16] MEDS: SODIUM BICARBONATE 650 MG TABLET PO SCH ×2 (09:15→17:23)
[2017-08-16] MEDS: AMLODIPINE 10MG TABLET PO SCH (09:15)
[2017-08-16] MEDS: CALCIUM CARBONATE 500MG TABLET CHEW PO SCH ×3 (09:15→17:19)
[2017-08-16] MEDS: MELOXICAM 7.5MG TABLET PO SCH (09:15)
[2017-08-16] MEDS: HYDROCHLOROTHIAZIDE 25MG TABLET PO SCH (09:15)
[2017-08-16] MEDS: POTASSIUM CHLORIDE 20MEQ TABLET SR PO SCH ×2 (09:15→17:19)
[2017-08-16] MEDS: CHOLECALCIFEROL (D3) 1000 UNIT TABLET PO SCH (09:16)
[2017-08-16 15:19] LABS: NUCLEATED RED BLOOD CELLS 1 /100 WBC
[2017-08-16 15:20] LABS: PLATELET ESTIMATE NORMAL
[2017-08-16] MEDS: IPRATROPIUM/ALBUTEROL 0.5-3(2.5)MG/3ML NEB HHN SCH ×2 (16:02→21:00)
[2017-08-16] MEDS: CEFTRIAXONE 2 G in DEXTROSE 5% WATER 50 ML IV SCH (17:17)
[2017-08-16] MEDS: LOSARTAN POTASSIUM 100 MG TABLET PO SCH (21:00)
[2017-08-16] MEDS ORDERED: AMITRIPTYLINE 25MG TABLET PO SCH (21:00)
[2017-08-17] VITALS (7 sets, daily range): BP systolic 110–129; BP diastolic 57–77
[2017-08-17] MEDS ORDERED: SODIUM CHLORIDE 3% 500 ML IV NR (01:30)
[2017-08-17] MEDS ORDERED: SODIUM CHLORIDE 3% 500ML IV SOLN IV SCH (02:00)
[2017-08-17] MEDS: METHYLPREDNISOLONE SOD SUCC 40 MG/ML VIAL IV SCH ×4 (02:51→17:44)
[2017-08-17] MEDS: ACETAMINOPHEN 325MG TABLET PO PRN ×2 (02:59→12:57)
[2017-08-17] MEDS: SODIUM CHLORIDE 3% 500 ML IV NR ×2 (03:05→13:49)
[2017-08-17] MEDS: PANTOPRAZOLE 40MG DR TABLET PO SCH ×2 (06:55→17:43)
[2017-08-17 06:59] LABS: HEMATOCRIT. 27.8 % (36.0-48.0); HEMOGLOBIN. 9.4 g/dL (12.0-16.0); MEAN CORPUSCULAR HEMOGLOBIN 29.5 pg (28.0-32.0); MEAN CORPUSCULAR VOLUME 87.5 fL (81.0-99.0); MEAN PLATELET VOLUME 8.5 fl (7.4-10.4); PLATELET 229 x1000/uL (130-400); RED BLOOD CELL COUNT 3.17 mill/uL (4.2-5.4); RED CELL DISTRIBUTION WIDTH 14.8 % (11.6-14.6)
[2017-08-17] MEDS: IPRATROPIUM/ALBUTEROL 0.5-3(2.5)MG/3ML NEB HHN SCH ×3 (08:44→16:33)
[2017-08-17] MEDS: VANCOMYCIN 750 MG PREMIX 150 ML IV SCH (09:46)
[2017-08-17] MEDS: CALCIUM CARBONATE 500MG TABLET CHEW PO SCH ×3 (09:47→17:43)
[2017-08-17] MEDS: DOCUSATE SODIUM 100MG CAPSULE PO SCH ×2 (09:47→17:43)
[2017-08-17] MEDS: CHOLECALCIFEROL (D3) 1000 UNIT TABLET PO SCH (09:47)
[2017-08-17] MEDS: MELOXICAM 7.5MG TABLET PO SCH (09:48)
[2017-08-17] MEDS: POTASSIUM CHLORIDE 20MEQ TABLET SR PO SCH ×2 (09:48→17:43)
[2017-08-17] MEDS: FOLIC ACID 1MG TABLET PO SCH (09:48)
[2017-08-17] MEDS: FERROUS SULFATE 325MG TABLET PO SCH ×3 (09:48→17:43)
[2017-08-17] MEDS: AMLODIPINE 10MG TABLET PO SCH (09:48)
[2017-08-17] MEDS: HYDRALAZINE HCL 50MG TABLET PO SCH (09:49)
[2017-08-17] MEDS: SODIUM BICARBONATE 650 MG TABLET PO SCH ×2 (09:49→17:43)
[2017-08-17] MEDS: CARVEDILOL 25MG TABLET PO SCH (09:49)
[2017-08-17] MEDS: HYDROCHLOROTHIAZIDE 25MG TABLET PO SCH (09:50)
[2017-08-17 13:42] LABS: PLATELET ESTIMATE NORMAL
[2017-08-17] MEDS: CEFTRIAXONE 2 G in DEXTROSE 5% WATER 50 ML IV SCH (15:52)
[2017-08-18] MEDS ORDERED: METHOTREXATE SODIUM 2 . 5MG TABLET PO SCH (09:00)
== END 2017-08-17 20:07 | DRG 500 ==
LOC: ER 15:20 → 6EST 15:56 → ENRESERV 19:57
PROVIDERS: ADMIT Internal Medicine Rheumatology; ATTEND Internal Medicine Rheumatology
PROC: 0LBR0ZZ Excision of Left Knee Tendon, Open Approach (ICD-10-PCS; 2017-08-08)
PROC: 0S9D0ZX Drainage of Left Knee Joint, Open Approach, Diagnostic (ICD-10-PCS; 2017-08-08)
PROC: 0LQR0ZZ Repair Left Knee Tendon, Open Approach (ICD-10-PCS; principal; 2017-08-08 15:00)
PROC: 02HV33Z Insertion of Infusion Device into Superior Vena Cava, Percutaneous Approach (ICD-10-PCS; 2017-08-11)
PROC: B5181ZA Fluoroscopy of Superior Vena Cava using Low Osmolar Contrast, Guidance (ICD-10-PCS; 2017-08-11)
PROC: B548ZZA Ultrasonography of Superior Vena Cava, Guidance (ICD-10-PCS; 2017-08-11)
DX: T84.54XA Infection and inflammatory reaction due to internal left knee prosthesis, initial encounter (principal); G93.41 Metabolic encephalopathy; A41.9 Sepsis, unspecified organism; E46 Unspecified protein-calorie malnutrition; E87.2 Acidosis; M00.9 Pyogenic arthritis, unspecified; D62 Acute posthemorrhagic anemia; T81.30XA Disruption of wound, unspecified, initial encounter; E87.1 Hypo-osmolality and hyponatremia; M25.062 Hemarthrosis, left knee; S81.012A Laceration without foreign body, left knee, initial encounter; E66.01 Morbid (severe) obesity due to excess calories; C50.911 Malignant neoplasm of unspecified site of right female breast; E11.9 Type 2 diabetes mellitus without complications; E78.5 Hyperlipidemia, unspecified; E87.6 Hypokalemia; F32.9 Major depressive disorder, single episode, unspecified; I11.9 Hypertensive heart disease without heart failure; I73.9 Peripheral vascular disease, unspecified; I77.6 Arteritis, unspecified; J98.4 Other disorders of lung; K21.9 Gastro-esophageal reflux disease without esophagitis; M05.10 Rheumatoid lung disease with rheumatoid arthritis of unspecified site; Z96.652 Presence of left artificial knee joint; Y83.1 Surgical operation with implant of artificial internal device as the cause of abnormal reaction of the patient, or of later complication, without mention of misadventure at the time of the procedure; S86.812A Strain of other muscle(s) and tendon(s) at lower leg level, left leg, initial encounter; M10.9 Gout, unspecified; M13.0 Polyarthritis, unspecified; Z79.82 Long term (current) use of aspirin; Z79.899 Other long term (current) drug therapy; Z80.0 Family history of malignant neoplasm of digestive organs; Z82.49 Family history of ischemic heart disease and other diseases of the circulatory system; Z87.891 Personal history of nicotine dependence; Z90.10 Acquired absence of unspecified breast and nipple; Z68.32 Body mass index [BMI] 32.0-32.9, adult
CPT/HCPCS: 36415; 36569; 71010; 73560; 76937; 77001; 80048; 80053; 80202; 82784; 82962; 83605; 83735; 83930; 84132; 84134; 84439; 84550; 85025; 85027; 85610; 85651; 85730; 86140; 86334; 86850; 86900; 87040; 87070; 87075; 87205; 88304; 93005; 93306; 93970; 94640; 94664; 96360; 96361; 96365; 96367; 97163; 97530; 99285; A4216; C1725; C1758; C1893; J0171; J0330; J0692; J0696; J1100; J1170; J1580; J1956; J2250; J2274; J2370; J2405; J2704; J2710; J2920; J2930; J3010; J3370; J3475; J3480; J3490; J7030; J7040; J7042; J7050; J7060; J7512; J7620; J8610; A4315